=== PATIENT | male | born 1940 | race Caucasian/White ===

== ENCOUNTER 2020-03-14 09:40 | Outpatient (REF) | payer MEDICARE, SELFPAY ==
--- NOTE | 2020-03-14 10:00 | XR_ITS ---
EXAMINATION: XR LUMBOSACRAL SPINE CLINICAL INFORMATION: Dorsalgia COMPARISON: None TECHNIQUE: Three views of the lumbosacral spine. FINDINGS: Multilevel spondylosis with endplate osteophytes and mild disc space granuloma levels most prominent at L3-L4. There is also severe bilateral facet arthrosis from L3-L4 through L5-S1. There is questionable mild loss of vertebral body height of the L1-L2 vertebral bodies. Suspect normal variation rather than fracture. The partially visualized pelvis including sacroiliac joints are normal. Prominent calcific atherosclerotic changes. XR/XR lumbar spine 2-3V IMPRESSION: Prominent multilevel spondylosis of lumbar sacral spine. Question loss of vertebral body heights of the lumbar region likely normal variation or chronic rather than compression fracture.
[2020-03-14 11:30] LABS: Prostate Specific Antigen Scr 0.92 ng/mL (<0.05-4.0)
== END 2020-03-14 09:41 | disposition home or self-care (01) ==
LOC: HO.LAB 09:40
PROVIDERS: PCP Internal Medicine; Visit Provider Internal Medicine
DX: M54.9 Dorsalgia, unspecified (principal)
CPT/HCPCS: 72100; 84153

== ENCOUNTER 2020-07-20 07:16 | Outpatient (REF) | payer MEDICARE, SELFPAY ==
[2020-07-20 07:55] LABS: Mean Corpuscular Hemoglobin 29.4 pg (27.0-33.0); Mean Corpuscular Volume 89.2 fL (80-98); Red Cell Distribution Width 14.9 % (11.0-16.0)
[2020-07-20 07:57] LABS: Basophils Percent Auto 0.5 % (0-2); Eosinophils Absolute Auto 0.1 X10*3/uL (0.0-0.4); Eosinophils Percent Auto 1.5 % (0-4); Hematocrit 46.4 % (42-52); Hemoglobin 15.3 g/dl (14.0-18.0); Imm Gran Abs Auto 0.09 X10*3/uL (0.00-0.03); Imm Gran Pct Auto 1.2 % (0.0-0.4); Lymphocytes Absolute Auto 3.1 X10*3/uL (1.2-4.9); Lymphocytes Percent Auto 42.3 % (20-40); Mean Platelet Volume 11.6 fL (9.4-12.4); Monocytes Absolute Auto 0.9 X10*3/uL (0.1-1.2); Monocytes Percent Auto 11.5 % (2-11); Neutrophils Absolute Auto 3.2 X10*3/uL (2.0-8.3); Platelet Count 126 X10*3/uL (160-400); White Blood Count 7.4 X10*3/uL (4.8-10.8)
[2020-07-20 08:00] LABS: MANUAL DIFF FLAG NO
[2020-07-20 08:15] LABS: Alanine Aminotransferase 23 U/L (0-40); Albumin Level 4.5 g/dL (3.5-5.0); Alkaline Phosphatase 58 U/L (39-117); Anion Gap 10 (12-20); Aspartate Amino Transferase 21 U/L (5-37); Bilirubin Total 1.1 mg/dL (0.0-1.0); Blood Urea Nitrogen 17 mg/dL (9-16); Calcium 9.4 mg/dL (8.4-10.2); Carbon Dioxide 33 mmol/L (22-29); Chloride 104 mmol/L (96-108); Cholesterol 145 mg/dL; Estimated Glomerular Filt Rate > 60; Glucose Random 104 mg/dL (60-115); HDL Cholesterol 49 mg/dL; LDL Cholesterol Calculated 74 mg/dl; Potassium 3.9 mmol/L (3.3-5.1); Sodium 143 mmol/L (135-145); Triglycerides 112 mg/dL
[2020-07-20 08:25] LABS: Glucose Urine UA NEG (NEG); Leukocyte Esterase Urine NEG (NEG); Nitrite Urine NEG (NEG); PH 6.5 (5.0-8.0); Urine Blood NEG (NEG); Urine Ketones NEG (NEG); Urine Protein NEG (NEG-TRACE)
[2020-07-20 08:28] LABS: Appearance Urine CLEAR; Color Urine YELLOW
[2020-07-20 08:38] LABS: Free T4 (Free Thyroxine) 0.93 ng/dL (0.71-1.85); Thyroid Stimulating Hormone 1.76 uIU/mL (0.32-4.0)
[2020-07-20 08:42] LABS: RBC Urine 0 /HPF (0); WBC Urine 0 /HPF (0-4)
[2020-07-22 04:15] LABS: Folate > 20.0 ng/mL (> or = 4.0); Vitamin B12 1024 pg/mL (200-900)
== END 2020-07-20 07:17 | disposition home or self-care (01) ==
LOC: HO.LAB 07:16
PROVIDERS: PCP Internal Medicine; Visit Provider Internal Medicine
DX: E78.00 Pure hypercholesterolemia, unspecified (principal); I10 Essential (primary) hypertension
CPT/HCPCS: 36415; 80053; 80061; 81001; 82607; 82746; 84439; 84443; 85025

== ENCOUNTER 2020-08-05 06:03 | Outpatient (REF) | payer MEDICARE, SELFPAY ==
[2020-08-05 07:21] LABS: MANUAL DIFF FLAG NO
[2020-08-05 07:30] LABS: Basophils Absolute Auto 0.1 X10*3/uL (0.0-0.2); Basophils Percent Auto 0.7 % (0-2); Eosinophils Absolute Auto 0.1 X10*3/uL (0.0-0.4); Eosinophils Percent Auto 1.2 % (0-4); Hematocrit 44.7 % (42-52); Hemoglobin 14.7 g/dl (14.0-18.0); Imm Gran Abs Auto 0.11 X10*3/uL (0.00-0.03); Imm Gran Pct Auto 1.5 % (0.0-0.4); Lymphocytes Absolute Auto 3.5 X10*3/uL (1.2-4.9); Lymphocytes Percent Auto 45.8 % (20-40); Mean Corpuscular HGB Conc 32.9 g/dl (31.0-36.0); Mean Corpuscular Hemoglobin 29.3 pg (27.0-33.0); Monocytes Absolute Auto 0.9 X10*3/uL (0.1-1.2); Monocytes Percent Auto 12.4 % (2-11); Neutrophils Absolute Auto 2.9 X10*3/uL (2.0-8.3); Neutrophils Percent Auto 38.4 % (45-73); Platelet Count 128 X10*3/uL (160-400); Red Blood Count 5.02 X10*6/uL (4.60-5.80); Red Cell Distribution Width 15.1 % (11.0-16.0); White Blood Count 7.5 X10*3/uL (4.8-10.8)
== END 2020-08-05 06:04 | disposition home or self-care (01) ==
LOC: HO.LAB 06:03
PROVIDERS: PCP Internal Medicine; Visit Provider Internal Medicine
DX: D69.6 Thrombocytopenia, unspecified (principal)
CPT/HCPCS: 36415; 85025

== ENCOUNTER 2020-10-11 09:49 | Outpatient (REF) | payer MEDICARE, SELFPAY ==
--- NOTE | ~2020-10-11 | XR_ITS ---
EXAMINATION: XR RIBS, RIGHT CLINICAL INFORMATION: Pleurodynia COMPARISON: None TECHNIQUE: 3 views of the right ribs were obtained. Chest one view. FINDINGS: The lungs are somewhat expanded with increase reticular interstitial markings both lungs likely chronic changes. No consolidation or pleural effusion seen. Heart size is borderline enlarged. Pulmonary vascularity is normal. No gross bony abnormality seen. Multiple views of right ribs reveals a healing or healed fracture right lateral 10th rib. No additional fracture or bony abnormality seen. The soft tissues are normal. XR/XR ribs RT min 3V w CXR1V IMPRESSION: Chronic bilateral reticular interstitial changes. No acute consolidation or pleural effusion. Old healed right lateral 10th rib fracture. No acute fracture seen.
== END 2020-10-11 09:50 | disposition home or self-care (01) ==
LOC: HO.HMGCX 09:49
PROVIDERS: PCP Internal Medicine; Visit Provider Hospitalist
DX: R07.81 Pleurodynia (principal)
CPT/HCPCS: 71101

== ENCOUNTER 2020-10-16 14:27 | Outpatient (REF) | payer MEDICARE, SELFPAY ==
--- NOTE | ~2020-10-16 | XR_ITS ---
EXAMINATION: XR CHEST CLINICAL INFORMATION: Dyspnea COMPARISON: Previous right rib x-rays 10/11/2020 TECHNIQUE: 2 views of the chest were obtained. FINDINGS: The cardiac silhouette is slightly enlarged. The right pulmonary hilum is dominant. The lung volumes are low. There are increased reticular markings suggestive of interstitial lung disease. This is greatest at the lung bases. There is no pleural effusion or pneumothorax. There are degenerative changes of the spine. XR/XR chest 2V IMPRESSION: Low lung volumes and increased interstitial markings suggestive of interstitial lung disease. Slightly enlarged cardiac silhouette. Prominent right pulmonary hilum.
[2020-10-16 15:51] LABS: Glucose Urine UA NEG (NEG); Leukocyte Esterase Urine NEG (NEG); Nitrite Urine NEG (NEG); Specific Gravity - Urine 1.025 (1.005-1.025); Urine Blood NEG (NEG); Urine Ketones 5 MG/DL (NEG); Urine Protein 1+ MG/DL (NEG-TRACE)
[2020-10-16 15:51] LABS: Hematocrit 38.8 % (42-52); Hemoglobin 12.7 g/dl (14.0-18.0); Mean Corpuscular HGB Conc 32.7 g/dl (31.0-36.0); Mean Corpuscular Hemoglobin 28.6 pg (27.0-33.0); Mean Corpuscular Volume 87.4 fL (80-98); Mean Platelet Volume 12.8 fL (9.4-12.4); Platelet Count 237 X10*3/uL (160-400); Red Blood Count 4.44 X10*6/uL (4.60-5.80); Red Cell Distribution Width 15.4 % (11.0-16.0); White Blood Count 10.7 X10*3/uL (4.8-10.8)
[2020-10-16 15:56] LABS: Appearance Urine CLEAR; Color Urine YELLOW
[2020-10-16 16:12] LABS: B Type Natriuretic Peptide 3029 pg/mL (<100)
[2020-10-16 16:14] LABS: Alanine Aminotransferase 44 U/L (0-40); Albumin Level 4.1 g/dL (3.5-5.0); Alkaline Phosphatase 89 U/L (39-117); Anion Gap 15 (12-20); Aspartate Amino Transferase 41 U/L (5-37); Bilirubin Direct 0.6 mg/dL (0.0-0.5); Bilirubin Total 1.5 mg/dL (0.0-1.0); Blood Urea Nitrogen 31 mg/dL (9-16); Calcium 9.5 mg/dL (8.4-10.2); Carbon Dioxide 27 mmol/L (22-29); Chloride 101 mmol/L (96-108); Estimated Glomerular Filt Rate > 60; Glucose Random 112 mg/dL (60-115); Potassium 3.7 mmol/L (3.3-5.1); Sodium 139 mmol/L (135-145); Total Protein 6.6 g/dL (6.5-8.0)
[2020-10-16 16:58] LABS: Mucus Urine 2+ /LPF; RBC Urine 0 /HPF (0); Squamous Epithelial Cell Urine TRACE /LPF; WBC Urine 0-2 /HPF (0-4)
== END 2020-10-16 14:28 | disposition home or self-care (01) ==
LOC: HO.XRAY 14:27
PROVIDERS: PCP Internal Medicine; Visit Provider Physician Assistant
DX: R53.83 Other fatigue (principal); R06.00 Dyspnea, unspecified; R30.0 Dysuria; I10 Essential (primary) hypertension
CPT/HCPCS: 36415; 71046; 80048; 80076; 81001; 83880; 85027

== ENCOUNTER → 2020-10-22 13:30 | Outpatient (BNVA) | payer MEDICARE, SELFPAY | PROVIDERS: PCP Internal Medicine; Visit Provider Internal Medicine ==

== ENCOUNTER 2020-10-26 08:22 | Inpatient (IN) | payer MEDICARE, SELFPAY ==
[2020-10-26] VITALS (9 sets, daily range): BP systolic 93–119; BP diastolic 56–76; PULSE 67–78; RESP 18–25; TEMP 36.4–36.8; O2SAT 90–97; BMI 25.4; BMI 25.5
--- NOTE | ~2020-10-26 | XR_ITS ---
EXAMINATION: XR CHEST CLINICAL INFORMATION: SOB COMPARISON: None TECHNIQUE: 2 views of the chest were obtained. FINDINGS: The lungs are well-expanded with patchy and interstitial opacity seen in both lungs suggestive of infiltrates the findings have minimally progressed since the last exam 10/16/2020. Heart size and pulmonary vascularity is normal. No gross bony abnormality seen. XR/XR chest 2V IMPRESSION: Bilateral patchy and interstitial opacities in both lungs slightly more prominent than the previous exams 10/16/2020.
--- NOTE | ~2020-10-26 | XR_ITS ---
EXAMINATION: XR CHEST CLINICAL INFORMATION: Following evaluation. History shortness of breath. COMPARISON: Chest radiograph on 10/26/[address] chest without contrast on 10/26/2020. TECHNIQUE: Frontal view of the chest was obtained. FINDINGS: Lung volumes are low. The heart is enlarged but stable in size. There are bilateral pulmonary opacities which appear slightly increased when compared to the prior examination, though this may be related to technique and low lung volumes. Small bilateral effusions. No pneumothorax. XR/XR chest 1V IMPRESSION: Low lung volumes. Persistent bilateral pulmonary opacities are stable to slightly increased when compared to the 10/26/2020 comparison. Small bilateral effusions.
--- NOTE | ~2020-10-26 | CT_ITS ---
EXAMINATION: CT CHEST WITHOUT CONTRAST CLINICAL INFORMATION: Abnormal chest x-ray. Evaluate for pneumonia COMPARISON: Chest x-ray 10/26/2020 TECHNIQUE: Multidetector volumetric CT imaging of the chest was done. Axial MIP volume rendering provided. Sagittal and coronal reformatted images were obtained. This CT examination was performed using dose optimization techniques as appropriate, variously including the following: *Automated exposure control *Adjustment of mA and/or kV according to patient size (this includes techniques or standardized protocols for targeted exams where dose is matched to indication/reason for exam; i.e. extremities or head) *Use of iterative reconstruction technique DLP: 304 mGy-cm FINDINGS: The exam is limited due to breathing artifact throughout the exam WINDOW CASER: Well-inflated lungs with patchy opacities bilaterally. LUNGS: There is diffuse groundglass opacities seen in both upper lobes, consolidation dependent segments of both upper lobe, superior segment and posterior segments of both lower lobe and minimal groundglass changes in the right middle lobe consistent with multilobar infiltrates. There is no bronchiectasis, tree-in-bud appearance seen. MEDIASTINUM: Central trachea and the bronchi widely patent. Thyroid lobes are symmetrical. Small abnormal reactive lymph nodes are seen in superior mediastinum measuring 1.6 x 1.2 cm, pretracheal space measuring 1.6 x 0.9 cm and aortic window measuring 1.1 cm. There are coronary artery calcifications present. The heart size is normal. Interval pericardial effusion seen on the right the great vessels are normal caliber. PLEURA: I lateral pleural effusions. No pleural calcification or pneumothorax seen. AXILLA: No lymphadenopathy. UPPER ABDOMEN: Visualized liver, spleen, pancreas and bilateral adrenal glands are unremarkable. OSSEOUS STRUCTURES: Mild spondylosis dorsal spine. CT/CT chest wo con IMPRESSION: There are multilevel or infiltrates and groundglass opacities suspicious for COVID like inflammatory process. There is bilateral small pleural effusions minimally greater on the left. Coronary artery calcifications are present.
--- NOTE | 2020-10-26 08:36 | ECG_ITS ---
Test Reason : SOB Blood Pressure : / mmHG Vent. Rate : 077 BPM Atrial Rate : 077 BPM P-R Int : 148 ms QRS Dur : 138 ms QT Int : 428 ms P-R-T Axes : 037 061 238 degrees QTc Int : 484 ms Normal sinus rhythm Possible Left atrial enlargement Non-specific intra-ventricular conduction block T wave abnormality, consider inferior ischemia and lateral ischemia Abnormal ECG When compared with ECG of 13-JUL-2015 07:43, IVCD present Inferolateral ischemic changes Referred By: Reyna Dove Electronically Signed By:Clive Reeves
--- NOTE | 2020-10-26 08:45 | ED.SOB ---
HPI - SOB/Dyspnea General Chief Complaint: Dyspnea Stated Complaint: sob Time Seen by Provider: 10/26/20 08:34 Source: patient Mode of arrival: ambulatory Limitations: no limitations History of Present Illness HPI Narrative: 80 yo male with past medical history of recent diagnosis of congestive heart failure on 20 mg of Lasix daily, hypertension, high cholesterol, BPH, coronary artery disease here with complaints of shortness of breath for the last 2 months worsening over the last 24 hours. Patient tells me he was seen at his primary care doctor the last month and referred to Cardiology for an elevated BNP. He was seen by Dr. Moran on October 22 and at that time had a BNP of greater than 3000. He was presumed to have congestive heart failure was started on 20 mg of Lasix. He has an outpatient echocardiogram and noncontrast CT scan of the chest next Wednesday. He is here because over the last 24 hours he feels like his breathing is getting worse. He can only walk 1-2 steps without feeling out of breath. He has orthopnea. He denies leg swelling or pain. No chest pain. No fevers or chills. He does have an occasional dry cough. No weight gain. He is complaining of fatigue and poor appetite due to difficulty breathing. Received 1st vaccine (Moderna) August 2020, 2nd vaccine (Moderna) August 2020 at [facility]. Related Data Home Medications Medication Instructions Recorded Confirmed atenolol 50 mg-chlorthalidone 25 1 tab PO DAILY 03/14/20 10/26/20 mg tablet atorvastatin 40 mg tablet 40 mg PO DAILY 03/14/20 10/26/20 aspirin 81 mg tablet,delayed 81 mg PO DAILY 05/10/20 10/26/20 release Previous Rx's Medication Instructions Recorded terazosin 2 mg capsule 2 mg PO BEDTIME #30 cap 09/19/20 furosemide 20 mg tablet 20 mg PO QAM 14 Days #14 tab 10/17/20 lisinopril 5 mg tablet 5 mg PO DAILY 30 Days #30 tab 10/17/20 albuterol sulfate 90 mcg/actuation 1 inh INHALATION QID PRN 30 Days 10/22/20 aerosol inhaler #8.5 g melatonin 10 mg capsule 10 mg PO DAILY 30 Days #30 cap 10/22/20 Allergies Allergy/AdvReac Type Severity Reaction Status Date / Time No Known Allergies Allergy Verified 10/22/20 13:43 Review of Systems Review of Systems: Yes all other systems are reviewed and are negative Constitutional: Constitutional: Reports no additional constitutional complaints, Denies body ache(s), Denies chills, Reports fatigue, Denies fever(s), Denies headache(s), Reports poor appetite and Denies weakness Eyes: Eyes: Reports no additional eye complaints and Denies change in vision ENT: Reports system reviewed and no additional complaints, except as documented, Denies dizziness, Denies headache(s), Denies nasal congestion, Denies nasal discharge and Denies neck pain Cardiovascular: Cardiovascular: Reports no additional cardiovascular complaints, Denies chest pain, Denies leg edema and Reports dyspnea Respiratory: Respiratory: Reports no additional respiratory complaints, Denies cough and Reports dyspnea Gastrointestinal: Gastrointestinal: Reports no additional gastrointestinal complaints, Denies abdominal pain, Denies diarrhea, Denies nausea and Denies vomiting Genitourinary: Genitourinary: Denies urinary incontinence Musculoskeletal: Musculoskeletal: Reports no additional musculoskeletal complaints, Denies back pain, Denies arthralgias, Denies joint swelling, Denies neck pain, Denies numbness and Denies tingling Integumentary/Breasts: Skin/Breast: Reports system reviewed and no additional complaints, except as docu and Denies rash Neurologic: Reports system reviewed and no additional complaints, except as documented, Denies Abnormal speech present, Denies dizziness, Denies headache(s), Denies numbness, Denies tingling and Denies weakness Endocrine: Endocrine: Reports fatigue PMFSH Past Medical History Attestation statement: The following information was validated with the patient. Source: old records reviewed and nursing notes reviewed Medical History Anxiety and depression BPH (benign prostatic hyperplasia) Coronary artery disease Hypercholesterolemia Hypertension Macular degeneration Urinary incontinence Varicose veins of both lower extremities Surgical History History of cataract surgery Hx of tonsillectomy Family History Family History Father No problems noted. Mother No problems noted. Social History Social History Housing: House Alcohol intake: never Patient Tobacco Use Status: Former Tobacco user e-Cigarette/Vaping Use: Never Used Second Hand Smoke Exposure: Yes Use of substances other than those prescribed or required for medical reasons: No Advance Directives: Yes Advance Directives Information Provided: No Advance Directives on File: No service: Yes ([employer]) Current occupational status: retired Physical Exam Vital Signs: Vital Signs: Last Vital Signs Temp 98.1 F 10/26/20 10:41 Pulse 76 10/26/20 11:28 Resp 18 10/26/20 11:28 BP 109/76 10/26/20 11:28 Pulse Ox 97 10/26/20 11:28 Body Mass Index 25.4 Const: General: cooperative, healthy appearing, comfortable and no acute distress Orientation/consciousness: patient oriented x3 Limitations: no limitations HENMT: Head: Yes normal to inspection Ears: hearing grossly normal bilaterally General nose exam: Normal external nose present Face and sinus: Yes normal facial exam Mouth: Normal oral and palatal mucosa present Throat: Yes posterior oropharynx normal Eyes: General: appearance normal, both eyes and all related structures Pupils: Equal, round and reactive pupils present Neck: Neck: Yes normal visual inspection Chest: Chest palpation & inspection: normal inspection of the chest Resp: Other: Speaking in short phrases Fine crackles throughout Cardio: Rate: regular rate Rhythm: regular rhythm Peripheral pulses: Peripheral pulses 2+ throughout GI: Inspection: Yes normal to inspection Palpation (GI): Soft to palpation and nontender Auscultation: normal bowel sounds Back/Spine/Pelvis: Thoracic/Lumbar Spine: thoracic and lumbar spine normal to inspection Skin: General skin exam: no rashes or lesions noted Neuro: General: patient oriented x3, no focal motor deficits and normal sensation to monofilament Cranial nerves: Yes Equal, round and reactive pupils present Cognition (Neuro): normal cognition Speech: No Abnormal speech present Gait exam (Neuro): Normal gait present Motor exam (neuro): 5/5 motor strength present throughout Extrem: General: Yes normal to inspection, Yes no pedal edema and Yes no calf tenderness Course Course Course Narrative: 80-year-old male here with progressive dyspnea x 24 hrs with orthopnea, fatigue and poor appetite in the setting of recent diagnosis of CHF on 20mg lasix x 4 days after being seen by Dr Moran ([facility]) 10/22. On arrival A&Ox4. HD stable. No reports of CP. No obvious JVD or leg swelling. Mild tachypnea noted with talking, fine crackles. Will check CXR, EKG, labs, COVID screen. Give 40mg lasix and admit. 854-EKG shows V1-V3 ST changes, poor R wave progression and ST depressions in leads V4-V6. Lateral ST changes when compared to EKG 10/22. NO chest pain. Call out to Dr Reeves to discuss. 904-D/w with Dr Reeves. NOT STEMI but lateral changes. Pending labs, CXR and w/u. 324mg ASA given. Nursing to place additional PIV. VS stable. 927-CXR shows IMPRESSION: Bilateral patchy and interstitial opacities in both lungs slightly more prominent than the previous exams 10/16/2020. Will check Ct Chest. -Troponin 46.6. Plan for repeat 3 hr troponin. BNP 3735. 1015-Ct c/w There are multilevel or infiltrates and groundglass opacities suspicious for COVID like inflammatory process. There is bilateral small pleural effusions minimally greater on the left. Coronary artery calcifications are present. At this time infection is suspected. Blood cultures, lactic acid ordered. Antibiotics ordered. 1020-Call out to medicine to discuss for admission. 1100-Spoke to Dr Salinas who accepted admission. MDM - SOB/Dyspnea MDM Narrative Medical decision making narrative: acs, nstemi, chf exacerbation, myocarditis Differential Diagnosis Differential diagnosis: Likely acute exacerbation of chronic obstructive airways disease, congestive heart failure and pneumonia Medical Records Attestation: I reviewed the patient's medical records. Lab Data Attestation: I reviewed the patient's lab results. Result diagrams: 10/26/20 08:56 10/26/20 08:56 Labs: Lab Results 10/26/20 10/26/20 10/26/20 Range/Units 08:56 08:56 08:56 WBC 8.7 (4.8-10.8) X10*3/uL RBC 4.46 L (4.60-5.80) X10*6/uL Hgb 12.6 L (14.0-18.0) g/dl Hct 38.6 L (42-52) % MCV 86.5 (80-98) fL MCH 28.3 (27.0-33.0) pg MCHC 32.6 (31.0-36.0) g/dl RDW 15.5 (11.0-16.0) % Plt Count 199 (160-400) X10*3/uL MPV 11.9 (9.4-12.4) fL Immature Gran % (Auto) 1.8 H (0.0-0.4) % Neut % (Auto) 74.5 H (45-73) % Lymph % (Auto) 13.5 L (20-40) % [place] % (Auto) 9.6 (2-11) % Eos % (Auto) 0.3 (0-4) % Baso % (Auto) 0.3 (0-2) % Lymph # (Auto) 1.2 (1.2-4.9) X10*3/uL [place] # (Auto) 0.8 (0.1-1.2) X10*3/uL Eos # (Auto) 0.0 (0.0-0.4) X10*3/uL Baso # (Auto) 0.0 (0.0-0.2) X10*3/uL Abs Immat Gran (auto) 0.16 H (0.00-0.03) X10*3/uL Absolute Neuts (auto) 6.5 (2.0-8.3) X10*3/uL Absolute Nucleated RBC 0.000 (0.0-0.012) X10*3/uL Nucleated RBC % (auto) 0.0 (0.0-0.2) /100WBC ESR (0-15) MM/HR PT 16.0 H (10.8-13.0) SEC INR 1.3 H (0.9-1.1) Sodium 135 (135-145) mmol/L Potassium 3.6 (3.3-5.1) mmol/L Chloride 100 (96-108) mmol/L Carbon Dioxide 28 (22-29) mmol/L Anion Gap 11 L (12-20) BUN 23 H (9-16) mg/dL Creatinine 0.92 (0.5-1.4) mg/dL Estim Creat Clear Calc 63.9 Estimated GFR > 60 Random Glucose 180 H D (60-115) mg/dL Lactic Acid (0.5-2.0) mmol/L Calcium 9.2 (8.4-10.2) mg/dL Magnesium (1.6-2.6) mg/dL Total Bilirubin (0.0-1.0) mg/dL Direct Bilirubin (0.0-0.5) mg/dL AST (5-37) U/L ALT (0-40) U/L Alkaline Phosphatase (39-117) U/L Troponin I High Sens (<3.5-35.0) ng/L C-Reactive Protein (< or = 0.50) mg/dL B-Natriuretic Peptide (<100) pg/mL Total Protein (6.5-8.0) g/dL Albumin (3.5-5.0) g/dL Coronavirus (PCR) (Negative) COVID-19 (MIS) (Negative) COVID-19 Clin Com Influenza Type A (PCR) (Negative) Influenza Type B (PCR) (Negative) RSV RNA Qual (PCR) (Negative) 10/26/20 10/26/20 10/26/20 Range/Units 08:56 08:56 08:56 WBC (4.8-10.8) X10*3/uL RBC (4.60-5.80) X10*6/uL Hgb (14.0-18.0) g/dl Hct (42-52) % MCV (80-98) fL MCH (27.0-33.0) pg MCHC (31.0-36.0) g/dl RDW (11.0-16.0) % Plt Count (160-400) X10*3/uL MPV (9.4-12.4) fL Immature Gran % (Auto) (0.0-0.4) % Neut % (Auto) (45-73) % Lymph % (Auto) (20-40) % [place] % (Auto) (2-11) % Eos % (Auto) (0-4) % Baso % (Auto) (0-2) % Lymph # (Auto) (1.2-4.9) X10*3/uL [place] # (Auto) (0.1-1.2) X10*3/uL Eos # (Auto) (0.0-0.4) X10*3/uL Baso # (Auto) (0.0-0.2) X10*3/uL Abs Immat Gran (auto) (0.00-0.03) X10*3/uL Absolute Neuts (auto) (2.0-8.3) X10*3/uL Absolute Nucleated RBC (0.0-0.012) X10*3/uL Nucleated RBC % (auto) (0.0-0.2) /100WBC ESR 31 H (0-15) MM/HR PT (10.8-13.0) SEC INR (0.9-1.1) Sodium (135-145) mmol/L Potassium (3.3-5.1) mmol/L Chloride (96-108) mmol/L Carbon Dioxide (22-29) mmol/L Anion Gap (12-20) BUN (9-16) mg/dL Creatinine (0.5-1.4) mg/dL Estim Creat Clear Calc Estimated GFR Random Glucose (60-115) mg/dL Lactic Acid (0.5-2.0) mmol/L Calcium (8.4-10.2) mg/dL Magnesium 2.2 (1.6-2.6) mg/dL Total Bilirubin 1.4 H (0.0-1.0) mg/dL Direct Bilirubin 0.7 H (0.0-0.5) mg/dL AST 32 (5-37) U/L ALT 43 H (0-40) U/L Alkaline Phosphatase 117 D (39-117) U/L Troponin I High Sens 46.6 H* (<3.5-35.0) ng/L C-Reactive Protein 2.85 H (< or = 0.50) mg/dL B-Natriuretic Peptide 3735 H (<100) pg/mL Total Protein 6.3 L (6.5-8.0) g/dL Albumin 3.9 (3.5-5.0) g/dL Coronavirus (PCR) (Negative) COVID-19 (MIS) (Negative) COVID-19 Clin Com Influenza Type A (PCR) (Negative) Influenza Type B (PCR) (Negative) RSV RNA Qual (PCR) (Negative) 10/26/20 10/26/20 10/26/20 Range/Units 09:31 10:36 10:36 WBC (4.8-10.8) X10*3/uL RBC (4.60-5.80) X10*6/uL Hgb (14.0-18.0) g/dl Hct (42-52) % MCV (80-98) fL MCH (27.0-33.0) pg MCHC (31.0-36.0) g/dl RDW (11.0-16.0) % Plt Count (160-400) X10*3/uL MPV (9.4-12.4) fL Immature Gran % (Auto) (0.0-0.4) % Neut % (Auto) (45-73) % Lymph % (Auto) (20-40) % [place] % (Auto) (2-11) % Eos % (Auto) (0-4) % Baso % (Auto) (0-2) % Lymph # (Auto) (1.2-4.9) X10*3/uL [place] # (Auto) (0.1-1.2) X10*3/uL Eos # (Auto) (0.0-0.4) X10*3/uL Baso # (Auto) (0.0-0.2) X10*3/uL Abs Immat Gran (auto) (0.00-0.03) X10*3/uL Absolute Neuts (auto) (2.0-8.3) X10*3/uL Absolute Nucleated RBC (0.0-0.012) X10*3/uL Nucleated RBC % (auto) (0.0-0.2) /100WBC ESR (0-15) MM/HR PT (10.8-13.0) SEC INR (0.9-1.1) Sodium (135-145) mmol/L Potassium (3.3-5.1) mmol/L Chloride (96-108) mmol/L Carbon Dioxide (22-29) mmol/L Anion Gap (12-20) BUN (9-16) mg/dL Creatinine (0.5-1.4) mg/dL Estim Creat Clear Calc Estimated GFR Random Glucose (60-115) mg/dL Lactic Acid 1.6 (0.5-2.0) mmol/L Calcium (8.4-10.2) mg/dL Magnesium (1.6-2.6) mg/dL Total Bilirubin (0.0-1.0) mg/dL Direct Bilirubin (0.0-0.5) mg/dL AST (5-37) U/L ALT (0-40) U/L Alkaline Phosphatase (39-117) U/L Troponin I High Sens 41.5 H* (<3.5-35.0) ng/L C-Reactive Protein (< or = 0.50) mg/dL B-Natriuretic Peptide (<100) pg/mL Total Protein (6.5-8.0) g/dL Albumin (3.5-5.0) g/dL Coronavirus (PCR) (Negative) COVID-19 (MIS) Negative (Negative) COVID-19 Clin Com See Note Influenza Type A (PCR) (Negative) Influenza Type B (PCR) (Negative) RSV RNA Qual (PCR) (Negative) 10/26/20 Range/Units 10:39 WBC (4.8-10.8) X10*3/uL RBC (4.60-5.80) X10*6/uL Hgb (14.0-18.0) g/dl Hct (42-52) % MCV (80-98) fL MCH (27.0-33.0) pg MCHC (31.0-36.0) g/dl RDW (11.0-16.0) % Plt Count (160-400) X10*3/uL MPV (9.4-12.4) fL Immature Gran % (Auto) (0.0-0.4) % Neut % (Auto) (45-73) % Lymph % (Auto) (20-40) % [place] % (Auto) (2-11) % Eos % (Auto) (0-4) % Baso % (Auto) (0-2) % Lymph # (Auto) (1.2-4.9) X10*3/uL [place] # (Auto) (0.1-1.2) X10*3/uL Eos # (Auto) (0.0-0.4) X10*3/uL Baso # (Auto) (0.0-0.2) X10*3/uL Abs Immat Gran (auto) (0.00-0.03) X10*3/uL Absolute Neuts (auto) (2.0-8.3) X10*3/uL Absolute Nucleated RBC (0.0-0.012) X10*3/uL Nucleated RBC % (auto) (0.0-0.2) /100WBC ESR (0-15) MM/HR PT (10.8-13.0) SEC INR (0.9-1.1) Sodium (135-145) mmol/L Potassium (3.3-5.1) mmol/L Chloride (96-108) mmol/L Carbon Dioxide (22-29) mmol/L Anion Gap (12-20) BUN (9-16) mg/dL Creatinine (0.5-1.4) mg/dL Estim Creat Clear Calc Estimated GFR Random Glucose (60-115) mg/dL Lactic Acid (0.5-2.0) mmol/L Calcium (8.4-10.2) mg/dL Magnesium (1.6-2.6) mg/dL Total Bilirubin (0.0-1.0) mg/dL Direct Bilirubin (0.0-0.5) mg/dL AST (5-37) U/L ALT (0-40) U/L Alkaline Phosphatase (39-117) U/L Troponin I High Sens (<3.5-35.0) ng/L C-Reactive Protein (< or = 0.50) mg/dL B-Natriuretic Peptide (<100) pg/mL Total Protein (6.5-8.0) g/dL Albumin (3.5-5.0) g/dL Coronavirus (PCR) NEGATIVE (Negative) COVID-19 (MIS) (Negative) COVID-19 Clin Com Influenza Type A (PCR) NEGATIVE (Negative) Influenza Type B (PCR) NEGATIVE (Negative) RSV RNA Qual (PCR) NEGATIVE (Negative) Imaging Data Chest x-ray: Attestation: I personally reviewed and interpreted this imaging study as follows: Radiologist's impression: FINDINGS: The lungs are well-expanded with patchy and interstitial opacity seen in both lungs suggestive of infiltrates the findings have minimally progressed since the last exam 10/16/2020. Heart size and pulmonary vascularity is normal. No gross bony abnormality seen. XR/XR chest 2V IMPRESSION: Bilateral patchy and interstitial opacities in both lungs slightly more prominent than the previous exams 10/16/2020. CT scan - chest: Attestation: I personally reviewed and interpreted this imaging study as follows: Radiologist's impression: IMPRESSION: There are multilevel or infiltrates and groundglass opacities suspicious for COVID like inflammatory process. There is bilateral small pleural effusions minimally greater on the left. Coronary artery calcifications are present. ECG Data Attestation: I personally reviewed and interpreted this ECG as follows: Interpretation: NSR with rate 77, St changes V1-V3 with poor r wave progression, ST depressions V4-V6. Reviewed with Dr Maria [id number] Reeves [id number] Discharge Plan Discharge Clinical Impression: CHF (congestive heart failure), SOB (shortness of breath), Acute electrocardiogram changes, Elevated troponin, Elevated brain natriuretic peptide (BNP) level Patient Disposition: Admitted As Inpatient
[2020-10-26 09:01] LABS: MANUAL DIFF FLAG NO
[2020-10-26] MEDS: Furosemide 40 MG/4 ML VIAL IVPUSH (09:02)
[2020-10-26 09:06] LABS: Basophils Percent Auto 0.3 % (0-2); Eosinophils Percent Auto 0.3 % (0-4); Hematocrit 38.6 % (42-52); Hemoglobin 12.6 g/dl (14.0-18.0); Imm Gran Abs Auto 0.16 X10*3/uL (0.00-0.03); Imm Gran Pct Auto 1.8 % (0.0-0.4); Lymphocytes Absolute Auto 1.2 X10*3/uL (1.2-4.9); Lymphocytes Percent Auto 13.5 % (20-40); Mean Corpuscular HGB Conc 32.6 g/dl (31.0-36.0); Mean Corpuscular Hemoglobin 28.3 pg (27.0-33.0); Mean Corpuscular Volume 86.5 fL (80-98); Mean Platelet Volume 11.9 fL (9.4-12.4); Monocytes Absolute Auto 0.8 X10*3/uL (0.1-1.2); Monocytes Percent Auto 9.6 % (2-11); Neutrophils Absolute Auto 6.5 X10*3/uL (2.0-8.3); Neutrophils Percent Auto 74.5 % (45-73); Platelet Count 199 X10*3/uL (160-400); Red Blood Count 4.46 X10*6/uL (4.60-5.80); Red Cell Distribution Width 15.5 % (11.0-16.0); White Blood Count 8.7 X10*3/uL (4.8-10.8)
[2020-10-26 09:09] LABS: INTERNATIONAL NORM RATIO 1.3 (0.9-1.1)
[2020-10-26] MEDS: Aspirin 81 MG TAB.CHEW 324 MG PO (09:15)
--- NOTE | 2020-10-26 09:19 | PC.NURSE ---
second iv placed following ekg, pt denies any cp at this time. given aspirin, tolerating po.
[2020-10-26 09:27] LABS: Alanine Aminotransferase 43 U/L (0-40); Albumin Level 3.9 g/dL (3.5-5.0); Alkaline Phosphatase 117 U/L (39-117); Anion Gap 11 (12-20); Aspartate Amino Transferase 32 U/L (5-37); Bilirubin Direct 0.7 mg/dL (0.0-0.5); Bilirubin Total 1.4 mg/dL (0.0-1.0); Blood Urea Nitrogen 23 mg/dL (9-16); Calcium 9.2 mg/dL (8.4-10.2); Carbon Dioxide 28 mmol/L (22-29); Chloride 100 mmol/L (96-108); Creatinine Clr Calc Pharmacy 63.9; Estimated Glomerular Filt Rate > 60; Glucose Random 180 mg/dL (60-115); Magnesium 2.2 mg/dL (1.6-2.6); Potassium 3.6 mmol/L (3.3-5.1); Sodium 135 mmol/L (135-145); Total Protein 6.3 g/dL (6.5-8.0)
[2020-10-26 09:38] LABS: B Type Natriuretic Peptide 3735 pg/mL (<100)
[2020-10-26 09:41] LABS: Troponin-I High Sensitivity 46.6 ng/L (<3.5-35.0)
[2020-10-26 09:52] LABS: COVID-19 Test Negative (Negative)
--- NOTE | 2020-10-26 10:16 | P.CONCA_ITS ---
History of Present Illness History of Present Illness Date of Service: 10/26/20 Requesting physician: Robina Maria Chief complaint: CHF Narrative: 80-year-old gentleman was seen by Dr. Moran recently with shortness of breath. He was referred for echocardiography and CT chest because there was some question what interstitial lung disease. He is now presenting for worsening shortness of breath which change in his breathing over the last few days. He is saying he has been short of breath for some time but recently his breathing has changed significantly. He is complaining of orthopnea and is unable to lay flat in bed. CT chest is showing inflammatory changes consistent with COVID infection. His COVID PCR is negative. He is denying chest disco mfort. He was given IV diuretics. Labs and EKG reviewed. [facility] Past Medical History Medical History Anxiety and depression BPH (benign prostatic hyperplasia) Coronary artery disease Hypercholesterolemia Hypertension Macular degeneration Urinary incontinence Varicose veins of both lower extremities Family History Family History Father No problems noted. Mother No problems noted. Surgical History Surgical History History of cataract surgery Hx of tonsillectomy Social History Social History Housing: House Alcohol intake: never Patient Tobacco Use Status: Former Tobacco user e-Cigarette/Vaping Use: Never Used Second Hand Smoke Exposure: Yes Use of substances other than those prescribed or required for medical reasons: No Advance Directives: Yes Advance Directives Information Provided: No Advance Directives on File: No service: Yes ([employer]) Current occupational status: retired Meds Allergies Allergy/AdvReac Type Severity Reaction Status Date / Time No Known Allergies Allergy Verified 10/22/20 13:43 Active Medications: Current Medications Generic Name Dose Route Start Last Admin Trade Name Freq PRN Reason Stop Dose Admin Ceftriaxone Sodium 1 gm/ 50 mls @ 100 mls/hr 10/26/20 10:15 Sodium Chloride IV 10/26/20 10:44 ONCE ONE Azithromycin 500 mg/ Sodium 250 mls @ 125 mls/hr 10/26/20 10:15 Chloride IV 10/26/20 12:14 ONCE ONE Home Medications Medication Instructions Recorded Confirmed Last Taken Type atenolol 50 mg-chlorthalidone 25 1 tab PO DAILY 03/14/20 10/26/20 Unknown History mg tablet atorvastatin 40 mg tablet 40 mg PO DAILY 03/14/20 10/26/20 Unknown History aspirin 81 mg tablet,delayed 81 mg PO DAILY 05/10/20 10/26/20 Unknown History release Physical Exam Vital Signs: Vital Signs: Last Vital Signs Temp 97.9 F 10/26/20 08:24 Pulse 78 10/26/20 08:24 Resp 18 10/26/20 08:24 BP 119/72 10/26/20 08:24 Pulse Ox 96 10/26/20 08:24 Body Mass Index 25.4 GENERAL APPEARANCE: in no acute distress, pleasant. NECK: no carotid bruit, no jugular venous distention. SKIN: no suspicious lesions, warm and dry. HEART: no murmurs, regular rate and rhythm. LUNGS: Few crackles. ABDOMEN: soft, nontender. EXTREMITIES: no edema. PERIPHERAL PULSES: equal. NEUROLOGIC: No gross deficits, AAO X 3 Results Labs and Meds Result diagrams: 10/26/20 08:56 10/26/20 08:56 Lab results: Laboratory Results - last 24 hr 10/26/20 10/26/20 10/26/20 08:56 08:56 08:56 WBC 8.7 RBC 4.46 L Hgb 12.6 L Hct 38.6 L MCV 86.5 MCH 28.3 MCHC 32.6 RDW 15.5 Plt Count 199 MPV 11.9 Immature Gran % (Auto) 1.8 H Neut % (Auto) 74.5 H Lymph % (Auto) 13.5 L [place] % (Auto) 9.6 Eos % (Auto) 0.3 Baso % (Auto) 0.3 Lymph # (Auto) 1.2 [place] # (Auto) 0.8 Eos # (Auto) 0.0 Baso # (Auto) 0.0 Abs Immat Gran (auto) 0.16 H Absolute Neuts (auto) 6.5 Absolute Nucleated RBC 0.000 Nucleated RBC % (auto) 0.0 PT 16.0 H INR 1.3 H Sodium 135 Potassium 3.6 Chloride 100 Carbon Dioxide 28 Anion Gap 11 L BUN 23 H Creatinine 0.92 Estim Creat Clear Calc 63.9 Estimated GFR > 60 Random Glucose 180 H D Calcium 9.2 Magnesium Total Bilirubin Direct Bilirubin AST ALT Alkaline Phosphatase Troponin I High Sens B-Natriuretic Peptide Total Protein Albumin COVID-19 (MIS) COVID-19 Clin Com 10/26/20 10/26/20 10/26/20 08:56 08:56 09:31 WBC RBC Hgb Hct MCV MCH MCHC RDW Plt Count MPV Immature Gran % (Auto) Neut % (Auto) Lymph % (Auto) [place] % (Auto) Eos % (Auto) Baso % (Auto) Lymph # (Auto) [place] # (Auto) Eos # (Auto) Baso # (Auto) Abs Immat Gran (auto) Absolute Neuts (auto) Absolute Nucleated RBC Nucleated RBC % (auto) PT INR Sodium Potassium Chloride Carbon Dioxide Anion Gap BUN Creatinine Estim Creat Clear Calc Estimated GFR Random Glucose Calcium Magnesium 2.2 Total Bilirubin 1.4 H Direct Bilirubin 0.7 H AST 32 ALT 43 H Alkaline Phosphatase 117 D Troponin I High Sens 46.6 H* B-Natriuretic Peptide 3735 H Total Protein 6.3 L Albumin 3.9 COVID-19 (MIS) Negative COVID-19 Clin Com See Note Imaging Radiologist's impression: Impressions Chest X-Ray 10/26/20 08:36 IMPRESSION: Bilateral patchy and interstitial opacities in both lungs slightly more prominent than the previous exams 10/16/2020. Chest CT 10/26/20 09:28 IMPRESSION: There are multilevel or infiltrates and groundglass opacities suspicious for COVID like inflammatory process. There is bilateral small pleural effusions minimally greater on the left. Coronary artery calcifications are present. Assessment and Plan (1) Dyspnea on exertion: Status: Acute (2) CHF (congestive heart failure): Status: Acute 80-year-old gentleman with shortness of breath and orthopnea. He was seen recently in the office for shortness of breath and was referred for echocardiography and CT chest because there was some changes consistent with interstitial lung disease. He had CT scan in the ER which is showing changes consistent with COVID infection. He also has some features which go along with heart failure. His BNP is significantly elevated and he has some orthopnea. agree with diuretics for now. We will check echocardiogram to assess for any structural issues. he had coronary artery calcifications on the CT scan. He will needs ischemic evaluation eventually. I think currently we need to understand whether this is purely heart failure or this is post COVID. Post diuretics he can have a chest x-ray tomorrow to see if there is any changes because of this is mostly fluid the chest x-ray showed improved. We will follow along with you. Thank you for allowing me to participate in the care of your patient. Please feel free to contact me if you have any questions. Procedures Date of Service Date of Service: 10/26/20
[2020-10-26 10:33] LABS: C Reactive Protein 2.85 mg/dL (< or = 0.50)
[2020-10-26] MEDS: cefTRIAXone sodium 1 GM in 0.9 % Sodium Chloride 50 ML IV (10:47)
--- NOTE | 2020-10-26 11:19 | CA_ITS ---
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 - The visually estimated ejection fraction is between 15-20%. - The basal inferior segment is akinetic. - Mildly increased right ventricular cavity size. There is mildly decreased right ventricular systolic function. - The left atrium is severely dilated. - Moderate pulmonary hypertension is present. - There is moderate tricuspid valve regurgitation. - There is mild to moderate mitral valve regurgitation. Findings Left Ventricle Mildly increased left ventricular cavity size. There is mildly increased left ventricular wall thickness. The left ventricular systolic function is severely decreased. The visually estimated ejection fraction is between 15 20%. There is severe global hypokinesis. Abnormal diastolic function is noted. Elevated filling pressures. Wall Motion Rest Echo Findings The basal inferior segment is akinetic. Right Ventricle Mildly increased right ventricular cavity size. There is mildly decreased right ventricular systolic function. Atria The left atrium is severely dilated. Aortic Valve Normal aortic valve structure and function. There is no aortic valve stenosis. There is no aortic valve regurgitation. Mitral Valve The mitral valve appears normal. There is mild to moderate mitral valve regurgitation. There is no mitral valve stenosis. Pulmonic Valve Normal pulmonic valve structure and function. There is trace pulmonic valve regurgitation. Tricuspid Valve Normal tricuspid valve structure. There is moderate tricuspid valve regurgitation. Moderately elevated right atrial pressure. Moderate pulmonary hypertension is present. Great Vessels The visualized portions of the pulmonary artery and branches are normal. Venous The inferior vena cava is dilated and collapses less than 50% with inspiration. Pericardium/Pleural There is no evidence of pericardial effusion. Prior Study Comparison No prior study available for comparison. Measurements 2D Linear Measurements IVSd: 1.22 0.6-0.9/0.6-1.0 cm LVIDd: 6.14 3.9-5.3/4.2-5.9 cm LVIDd Index: 3.10 2.4-3.2/2.2-3.1 cm/m2 LVIDs: 5.49 2.0-3.6 cm LVPWd: 1.24 0.7-1.1 cm Ao Root: 3.60 2.1-3.5 cm LA Diam: 5.10 2.7-3.8/3.0-4.0 cm LAIDs Index: 2.58 1.5-2.3 cm/m2 LV Mass: 420.76 67-162/88-224 g LV Mass Index: 212.51 43-95/49-115 g/m2 LVOT Diam: 2.30 3.0+(-)1.3 cm Mitral Valve MV Pk E: 0.68 MV PK A: 0.71 MV Decel Time: 118.00 E/A: 1.00 E'Lateral: 4.24 E'Medial: 3.05 E/E' Med: 22.30 E/E' Lat: 16.10 PHT: 34.00 MVA PHT: 6.47 Decel [place]: 5.79 Aortic Valve AoV Pk Jin: 0.92 AoV Mn Jin: 0.60 AoV VTI: 0.21 AoV Pk Grad: 3.00 Aov Mn Grad: 2.00 ELIEL Cont.VTI: 2.49 LVOT LVOT Pk Jin: 0.60 LVOT Mn Jin: 0.39 LVOT VTI: 0.13 LVOT Pk Grad: 1.00 LVOT Mn Grad: 1.00 LVOT Diam: 2.30 LVOT Area: 4.15 Diastolic Function MV Pk E: 0.68 MV Pk A: 0.71 E/A: 1.00 E'Medial: 3.05 E/E' Med: 22.30 E' Laterial: 4.24 E/E' Lat: 16.10 Tricuspid Valve TR Pk Jin: 3.08 TR Pk Grad: 38.00 RA Press: 15.00 RVSP: 53.00 Great Vessels Aorta Ao Root-2D: 3.60 2.0-3.7 cm Pulmonary Valve PV Pk Jin: 0.96 Peak PV Grad: 4.00 Updated in Other Vendor System with Status of Final Clive Reeves MD electronically signed on 10/26/2020 4:16:30 PM with status of Final
[2020-10-26] MEDS: Azithromycin 500 MG in 0.9 % Sodium Chloride 250 ML 125 MG IV (11:24)
[2020-10-26 11:27] LABS: Erythrocyte Sedimentation Rate 31 MM/HR (0-15)
[2020-10-26 11:28] LABS: Lactic Acid 1.6 mmol/L (0.5-2.0)
[2020-10-26 11:32] LABS: Influenza A PCR NEGATIVE (Negative); Influenza B PCR NEGATIVE (Negative); Resp Syncy Virus RNA Qual PCR NEGATIVE (Negative); SARS COV2 PCR INHOUSE NEGATIVE (Negative)
[2020-10-26 11:40] LABS: Troponin-I High Sensitivity 41.5 ng/L (<3.5-35.0)
--- NOTE | 2020-10-26 11:41 | PM.IMHP ---
History of Present Illness Date of Service: 10/26/20 Chief Complaint: Shortness of breath 80-year-old male presented with shortness of breath. Patient states that he has been feeling short of breath since about 3 months prior to presentation. This is worse on exertion, patient states that he ahs to stop to get his breath with just minimal exertion. Complains of orthopnea. He was seen in cardiology clinic 4 days prior to presentation, at that time noted to have elevated BNP, chest x-ray with interstitial opacities, plan was for CT chest and echo. Patient returned to ED today for worsening shortness of breath over last day and feeling like he can not wait for outpatient workup. In ED CT chest showed bilateral ground-glass opacities. COVID negative. Review of Systems Review of Systems: Constitutional: Denies fever, denies Chills Eyes: denies blurry vision ENT: denies sore throat CVS: denies chest pain Respiratory: dyspnea GI: no abdominal pain : denies dysuria MSK: denies neck pain Skin: denies rash Neuro: denies specific motor weakness Psych: denies suicidal ideation Endocrine: denies heat/cold intoleratnce Hematologic: denies easy bleeding Allergy: denies hives [facility] Medical History Anxiety and depression BPH (benign prostatic hyperplasia) Coronary artery disease Hypercholesterolemia Hypertension Macular degeneration Urinary incontinence Varicose veins of both lower extremities Family History Father No problems noted. Mother No problems noted. Family history: reviewed and not pertinent Surgical History History of cataract surgery Hx of tonsillectomy Social History Housing: House Alcohol intake: never Patient Tobacco Use Status: Former Tobacco user e-Cigarette/Vaping Use: Never Used Second Hand Smoke Exposure: Yes Use of substances other than those prescribed or required for medical reasons: No Advance Directives: Yes Advance Directives Information Provided: No Advance Directives on File: No service: Yes ([employer]) Current occupational status: retired Meds Allergies Allergy/AdvReac Type Severity Reaction Status Date / Time No Known Allergies Allergy Verified 10/22/20 13:43 Active Medications: Current Medications Generic Name Dose Route Start Last Admin Trade Name Alan PRN Reason Stop Dose Admin Azithromycin 500 mg/ Sodium 250 mls @ 125 mls/hr 10/26/20 10:15 10/26/20 11:24 Chloride IV 10/26/20 12:14 125 mls/hr ONCE ONE Administration Home Medications Medication Instructions Recorded Confirmed Last Taken Type atenolol 50 mg-chlorthalidone 25 1 tab PO DAILY 03/14/20 10/26/20 Unknown History mg tablet atorvastatin 40 mg tablet 40 mg PO DAILY 03/14/20 10/26/20 Unknown History aspirin 81 mg tablet,delayed 81 mg PO DAILY 05/10/20 10/26/20 Unknown History release Physical Exam Vital Signs and Narrative: Vital Signs: Last Vital Signs Temp 98.1 F 10/26/20 10:41 Pulse 76 10/26/20 11:28 Resp 18 10/26/20 11:28 BP 109/76 10/26/20 11:28 Pulse Ox 97 10/26/20 11:28 Body Mass Index 25.4 General: no acute distress HEENT: atraumatic Neck: normal to visual inspection CVS: S1, S2, RRR Resp: Crackles, jvd+ Chest: non tender GI: soft, non tender, non distended : no CVA tenderness Skin: no rashes Extremities: no edema Neuro: Oriented X3, grossly intact Psych: cooperative Results Labs CBC and Chem 7: 10/26/20 08:56 10/26/20 08:56 Labs: Laboratory Results - last 24 hr 10/26/20 10/26/20 10/26/20 08:56 08:56 08:56 MCV 86.5 MCH 28.3 MCHC 32.6 RDW 15.5 Plt Count 199 MPV 11.9 Immature Gran % (Auto) 1.8 H Neut % (Auto) 74.5 H Lymph % (Auto) 13.5 L [place] % (Auto) 9.6 Eos % (Auto) 0.3 Baso % (Auto) 0.3 Lymph # (Auto) 1.2 [place] # (Auto) 0.8 Eos # (Auto) 0.0 Baso # (Auto) 0.0 Abs Immat Gran (auto) 0.16 H Absolute Neuts (auto) 6.5 Absolute Nucleated RBC 0.000 Nucleated RBC % (auto) 0.0 ESR PT 16.0 H INR 1.3 H Anion Gap 11 L Estim Creat Clear Calc 63.9 Estimated GFR > 60 Random Glucose 180 H D Lactic Acid Calcium 9.2 Magnesium Total Bilirubin Direct Bilirubin AST ALT Alkaline Phosphatase Troponin I High Sens C-Reactive Protein B-Natriuretic Peptide Total Protein Albumin COVID-19 (MIS) COVID-19 Clin Com 10/26/20 10/26/20 10/26/20 08:56 08:56 08:56 MCV MCH MCHC RDW Plt Count MPV Immature Gran % (Auto) Neut % (Auto) Lymph % (Auto) [place] % (Auto) Eos % (Auto) Baso % (Auto) Lymph # (Auto) [place] # (Auto) Eos # (Auto) Baso # (Auto) Abs Immat Gran (auto) Absolute Neuts (auto) Absolute Nucleated RBC Nucleated RBC % (auto) ESR 31 H PT INR Anion Gap Estim Creat Clear Calc Estimated GFR Random Glucose Lactic Acid Calcium Magnesium 2.2 Total Bilirubin 1.4 H Direct Bilirubin 0.7 H AST 32 ALT 43 H Alkaline Phosphatase 117 D Troponin I High Sens 46.6 H* C-Reactive Protein 2.85 H B-Natriuretic Peptide 3735 H Total Protein 6.3 L Albumin 3.9 COVID-19 (MIS) COVID-19 [employer] Com 10/26/20 10/26/20 10/26/20 09:31 10:36 10:36 MCV MCH MCHC RDW Plt Count MPV Immature Gran % (Auto) Neut % (Auto) Lymph % (Auto) [place] % (Auto) Eos % (Auto) Baso % (Auto) Lymph # (Auto) [place] # (Auto) Eos # (Auto) Baso # (Auto) Abs Immat Gran (auto) Absolute Neuts (auto) Absolute Nucleated RBC Nucleated RBC % (auto) ESR PT INR Anion Gap Estim Creat Clear Calc Estimated GFR Random Glucose Lactic Acid 1.6 Calcium Magnesium Total Bilirubin Direct Bilirubin AST ALT Alkaline Phosphatase Troponin I High Sens 41.5 H* C-Reactive Protein B-Natriuretic Peptide Total Protein Albumin COVID-19 (MIS) Negative COVID-19 Clin Com See Note Imaging Radiologist's Impressions: Impressions Chest X-Ray 10/26/20 08:36 IMPRESSION: Bilateral patchy and interstitial opacities in both lungs slightly more prominent than the previous exams 10/16/2020. Chest CT 10/26/20 09:28 IMPRESSION: There are multilevel or infiltrates and groundglass opacities suspicious for COVID like inflammatory process. There is bilateral small pleural effusions minimally greater on the left. Coronary artery calcifications are present. Assessment and Plan (1) SOB (shortness of breath): Status: Acute 80M presented with sob acute on chronic CHF unspecified IV lasix times one in ED, follow up echo, cardio interstitial findings on CT ?ILD will give steroids covid negative pulm eval HTN low -normal bp, will hold atenolol/chlorthalidone, terazosin for now CAD asa, statin Quality Stroke Does the patient have a stroke diagnosis?: No VTE Prior VTE?: No VTE Risk Level:: Medical - moderate - high VTE Device Contraindication: Treatment Not Indicated VTE Drug Contraindication: N/A - Med Ordered
[2020-10-26] MEDS: Losartan Potassium 25 MG TABLET PO (13:09)
[2020-10-26] MEDS: 0.9 % Sodium Chloride Flush 3 ML SYRINGE IVFLUSH ×2 (15:13→20:40)
[2020-10-26] MEDS: Melatonin 3 MG TABLET 9 MG PO (20:40)
[2020-10-27 02:02] VITALS: BP 97/52; PULSE 70; RESP 18; TEMP 36.2; O2SAT 91
[2020-10-27] MEDS: Enoxaparin Sodium 40 MG/0.4 ML SYRINGE SUBCUT (05:08)
[2020-10-27 05:34] VITALS: BMI 25.2
[2020-10-27 06:43] LABS: Hemoglobin 12.3 g/dl (14.0-18.0); Mean Corpuscular HGB Conc 33.2 g/dl (31.0-36.0); Mean Corpuscular Hemoglobin 28.5 pg (27.0-33.0); Mean Corpuscular Volume 85.8 fL (80-98); Mean Platelet Volume 12.9 fL (9.4-12.4); Platelet Count 177 X10*3/uL (160-400); Red Blood Count 4.31 X10*6/uL (4.60-5.80); Red Cell Distribution Width 15.5 % (11.0-16.0); White Blood Count 7.3 X10*3/uL (4.8-10.8)
[2020-10-27 07:00] LABS: B Type Natriuretic Peptide 2492 pg/mL (<100)
[2020-10-27 07:03] LABS: Anion Gap 12 (12-20); Blood Urea Nitrogen 22 mg/dL (9-16); Calcium 8.5 mg/dL (8.4-10.2); Carbon Dioxide 28 mmol/L (22-29); Chloride 102 mmol/L (96-108); Creatinine Clr Calc Pharmacy 73.5; Estimated Glomerular Filt Rate > 60; Glucose Fasting 92 mg/dL (60-99); Magnesium 2.1 mg/dL (1.6-2.6); Potassium 3.2 mmol/L (3.3-5.1); Sodium 139 mmol/L (135-145)
[2020-10-27 07:59] VITALS: BP 110/66; PULSE 74; RESP 19; TEMP 36.3; O2SAT 93
[2020-10-27] MEDS: 0.9 % Sodium Chloride Flush 3 ML SYRINGE IVFLUSH ×3 (08:06→21:43)
[2020-10-27] MEDS: Atorvastatin Calcium 40 MG TABLET PO (08:07)
[2020-10-27] MEDS: predniSONE 20 MG TABLET 40 MG PO (08:07)
[2020-10-27] MEDS: Furosemide 20 MG/2 ML VIAL IVPUSH (08:07)
[2020-10-27] MEDS: Losartan Potassium 25 MG TABLET PO (08:07)
[2020-10-27] MEDS: Aspirin Enteric Coated 81 MG TABLET.DR PO (08:07)
--- NOTE | 2020-10-27 10:03 | HO.PM.IMPN ---
Subjective Subjective Date of Service: 10/27/20 Interval History: sob improving, was able to lie flat Cardiovascular Cardiovascular: Reports no additional cardiovascular complaints Respiratory Respiratory: Reports no additional respiratory complaints Physical Exam Vital Signs: Vital Signs: Last Vital Signs Temp 97.4 F 10/27/20 07:59 Pulse 74 10/27/20 07:59 Resp 19 10/27/20 07:59 BP 110/66 10/27/20 07:59 Pulse Ox 93 10/27/20 07:59 Body Mass Index 25.2 General: AO X 3, no acute distress Resp: CTA bilateral CVS: S1,S2,RRR GI: soft, non tender, non distended Neuro: motor grossly intact Psych: appropriate affect Objective Data Current Medications Generic Name Dose Route Start Last Admin Trade Name Freq PRN Reason Stop Dose Admin Albuterol Sulfate 1 puff 10/26/20 14:44 Albuterol Sulfate 90 Mcg 8 Gm Inhaler INHALE QID PRN shortness of breath or wheezing Aspirin 81 mg 10/27/20 09:00 10/27/20 08:07 Aspirin Enteric Coated 81 Mg Tablet. PO 81 mg DAILY YOU Administration Atorvastatin Calcium 40 mg 10/27/20 09:00 10/27/20 08:07 Atorvastatin Calcium 40 Mg Tablet PO 40 mg DAILY YOU Administration Enoxaparin Sodium 40 mg 10/27/20 06:00 10/27/20 05:08 Enoxaparin Sodium 40 Mg/0.4 Ml Syringe SUBCUT 40 mg Q24H YOU Administration Furosemide 20 mg 10/27/20 09:00 10/27/20 08:07 Furosemide 20 Mg/2 Ml Vial IVPUSH 20 mg DAILY YOU Administration Protocol Losartan Potassium 25 mg 10/26/20 13:00 10/27/20 08:07 Losartan Potassium 25 Mg Tablet PO 25 mg DAILY YOU Administration Protocol Melatonin 9 mg 10/26/20 21:00 10/26/20 20:40 Melatonin 3 Mg Tablet PO 9 mg BEDTIME YOU Administration Prednisone 40 mg 10/27/20 09:00 10/27/20 08:07 Prednisone 20 Mg Tablet PO 40 mg DAILY YOU Administration Sodium Chloride 3 ml 10/26/20 16:00 10/27/20 08:06 0.9 % Sodium Chloride Flush 3 Ml Syringe IVFLUSH 3 ml QSHIFT YOU Administration Labs CBC & Chem 7: 10/27/20 05:43 10/27/20 05:43 Labs: Laboratory Results - last 24 hr 10/26/20 10/26/20 10/26/20 08:56 08:56 10:36 WBC RBC Hgb Hct MCV MCH MCHC RDW Plt Count MPV Absolute Nucleated RBC Nucleated RBC % (auto) ESR 31 H Sodium Potassium Chloride Carbon Dioxide Anion Gap BUN Creatinine Estim Creat Clear Calc Estimated GFR Fasting Glucose Lactic Acid Calcium Magnesium Troponin I High Sens 41.5 H* C-Reactive Protein 2.85 H B-Natriuretic Peptide Coronavirus (PCR) Influenza Type A (PCR) Influenza Type B (PCR) RSV RNA Qual (PCR) 10/26/20 10/26/20 10/27/20 10:36 10:39 05:43 WBC 7.3 RBC 4.31 L Hgb 12.3 L Hct 37.0 L MCV 85.8 MCH 28.5 MCHC 33.2 RDW 15.5 Plt Count 177 MPV 12.9 H Absolute Nucleated RBC 0.000 Nucleated RBC % (auto) 0.0 ESR Sodium Potassium Chloride Carbon Dioxide Anion Gap BUN Creatinine Estim Creat Clear Calc Estimated GFR Fasting Glucose Lactic Acid 1.6 Calcium Magnesium Troponin I High Sens C-Reactive Protein B-Natriuretic Peptide Coronavirus (PCR) NEGATIVE Influenza Type A (PCR) NEGATIVE Influenza Type B (PCR) NEGATIVE RSV RNA Qual (PCR) NEGATIVE 10/27/20 10/27/20 05:43 05:43 WBC RBC Hgb Hct MCV MCH MCHC RDW Plt Count MPV Absolute Nucleated RBC Nucleated RBC % (auto) ESR Sodium 139 Potassium 3.2 L Chloride 102 Carbon Dioxide 28 Anion Gap 12 BUN 22 H Creatinine 0.80 Estim Creat Clear Calc 73.5 Estimated GFR > 60 Fasting Glucose 92 Lactic Acid Calcium 8.5 D Magnesium 2.1 Troponin I High Sens C-Reactive Protein B-Natriuretic Peptide 2492 H Coronavirus (PCR) Influenza Type A (PCR) Influenza Type B (PCR) RSV RNA Qual (PCR) Quality Stroke Does the patient have a stroke diagnosis?: No VTE Prior VTE?: No VTE Risk Level:: Medical - moderate - high VTE Device Contraindication: Treatment Not Indicated VTE Drug Contraindication: N/A - Med Ordered Assessment and Plan (1) Acute congestive heart failure: Status: Acute Assessment and Plan: 80M presented with sob acute on chronic CHF with reduced EF received 40mg iv lasix in ED, now on 20mg daily notes improvement echo with EF of 20% follow up cardio follow up repeat CXR losartan interstitial findings on CT ?asymetric pulm edema vs ILD pulm eval HTN low -normal bp, will hold atenolol/chlorthalidone, terazosin, lisinopril for now CAD asa, statin
--- NOTE | 2020-10-27 10:31 | PM.CNPUL ---
History of Present Illness History of Present Illness Consult date: 10/27/20 Requesting physician: Johnathon Salinas Reason for consult: dyspnea and hypoxemia Chief complaint: CHF Narrative: 80-year-old gentleman, former 20 pack-year smoker quit 1989, with underlying history of coronary artery disease, hypertension, BPH, macular degeneration admitted on 10/26/2020 with progressive dyspnea of the last [address] chest demonstrated interstitial edema and upper lobe predominant infiltrates. He has been started on diuresis. His 2D echo official report is pending with preliminary showing ejection fraction of 20%. Patient today reports significant improvement in his orthopnea and dyspnea with diuresis. He denies cough or sputum production. 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 Review of Systems Constitutional: Constitutional: Denies daytime sleepiness, Denies excessive sweating, Denies fatigue, Denies fever(s), Denies lethargy, Denies malaise, Denies night sweats, Denies snoring and Denies weight loss Eyes: Eyes: Denies blurry vision and Denies itchy eyes ENT: Denies nasal congestion, Denies post nasal drip, Denies sinus pain, Denies sinus pressure and Denies other ( Thrush) Cardiovascular: Cardiovascular: Denies chest pain, Denies pedal edema, Reports dyspnea, Reports orthopnea and Reports paroxysmal nocturnal dyspnea Respiratory: Respiratory: Denies cough, Denies hemoptysis, Denies excessive phlegm production, Reports dyspnea, Denies snoring and Denies wheezing Gastrointestinal: Gastrointestinal: Denies abdominal pain and Denies heartburn Musculoskeletal: Musculoskeletal: Denies myalgias, Denies arthralgias and Denies joint swelling Integumentary/Breasts: Skin/Breast: Denies rash Neurologic: Denies memory loss and Denies seizure-like activity Psychiatric: Psychiatric: Denies abnormal sleep pattern, Denies anxiety and Denies memory loss Endocrine: Endocrine: Denies excessive sweating, Denies fatigue and Denies heat intolerance Hematologic/Lymphatic: Hematologic/Lymphatic: Denies easy bruising Allergic/Immunologic: Allergic/Immunologic: Denies itchy eyes, Denies seasonal rhinorrhea and Denies wheezing PMFSH Past Medical History Medical History Anxiety and depression BPH (benign prostatic hyperplasia) Coronary artery disease Hypercholesterolemia Hypertension Macular degeneration Urinary incontinence Varicose veins of both lower extremities Family History Family History Father No problems noted. Mother No problems noted. Family history: reviewed and not pertinent Surgical History Surgical History History of cataract surgery Hx of tonsillectomy Social History Social History Household Members: Friend(s) and None Housing: House Do you presently have visiting nurse or other home services: No Alcohol intake: never Patient Tobacco Use Status: Former Tobacco user Tobacco use type: Cigarette e-Cigarette/Vaping Use: Never Used Second Hand Smoke Exposure: Yes Advance Directives Date on File: 10/26/20 service: Yes ([employer]) Current occupational status: retired [employer] Allergies Allergy/AdvReac Type Severity Reaction Status Date / Time No Known Allergies Allergy Verified 10/22/20 13:43 Active Medications: Current Medications Generic Name Dose Route Start Last Admin Trade Name Freq PRN Reason Stop Dose Admin Albuterol Sulfate 1 puff 10/26/20 14:44 Albuterol Sulfate 90 Mcg 8 Gm Inhaler INHALE QID PRN shortness of breath or wheezing Aspirin 81 mg 10/27/20 09:00 10/27/20 08:07 Aspirin Enteric Coated 81 Mg Tablet. PO 81 mg DAILY YOU Administration Atorvastatin Calcium 40 mg 10/27/20 09:00 10/27/20 08:07 Atorvastatin Calcium 40 Mg Tablet PO 40 mg DAILY YOU Administration Enoxaparin Sodium 40 mg 10/27/20 06:00 10/27/20 05:08 Enoxaparin Sodium 40 Mg/0.4 Ml Syringe SUBCUT 40 mg Q24H YOU Administration Furosemide 20 mg 10/27/20 09:00 10/27/20 08:07 Furosemide 20 Mg/2 Ml Vial IVPUSH 20 mg DAILY YOU Administration Protocol Losartan Potassium 25 mg 10/26/20 13:00 10/27/20 08:07 Losartan Potassium 25 Mg Tablet PO 25 mg DAILY YOU Administration Protocol Melatonin 9 mg 10/26/20 21:00 10/26/20 20:40 Melatonin 3 Mg Tablet PO 9 mg BEDTIME YOU Administration Prednisone 40 mg 10/27/20 09:00 10/27/20 08:07 Prednisone 20 Mg Tablet PO 40 mg DAILY YOU Administration Sodium Chloride 3 ml 10/26/20 16:00 10/27/20 08:06 0.9 % Sodium Chloride Flush 3 Ml Syringe IVFLUSH 3 ml QSHIFT YOU Administration Home Medications Medication Instructions Recorded Confirmed Last Taken Type atenolol 50 mg-chlorthalidone 25 1 tab PO DAILY 03/14/20 10/26/20 Unknown History mg tablet atorvastatin 40 mg tablet 40 mg PO DAILY 03/14/20 10/26/20 Unknown History aspirin 81 mg tablet,delayed 81 mg PO DAILY 05/10/20 10/26/20 Unknown History release Physical Exam Vital Signs: Vital Signs: Last Vital Signs Temp 97.4 F 10/27/20 07:59 Pulse 74 10/27/20 07:59 Resp 19 10/27/20 07:59 BP 110/66 10/27/20 07:59 Pulse Ox 93 10/27/20 07:59 Body Mass Index 25.2 Const: General: no acute distress, alert and awake Eyes: Sclerae: sclerae normal EOM: EOMs intact bilaterally Neck: Neck: Yes no lymphadenopathy, Yes trachea midline and Yes supple Resp: Effort & Inspection: normal respiratory effort and no respiratory distress Auscultation: clear to auscultation bilaterally Cardio: Rate: regular rate Rhythm: regular rhythm Heart sounds: no gallops, no murmurs and no rubs GI: Palpation (GI): Soft to palpation and Other GI palpation findings present ( Nontender) Auscultation: normal bowel sounds Extrem: General: Yes no pedal edema, No clubbing and No cyanosis Results Laboratory Findings CBC and BMP: 10/27/20 05:43 10/27/20 05:43 ABG, PT/INR, D-dimer: PT/INR, D-dimer PT 16.0 SEC (10.8-13.0) H 10/26/20 08:56 INR 1.3 (0.9-1.1) H 10/26/20 08:56 Abnormal lab findings: Abnormal Labs 10/26/20 10/26/20 10/26/20 08:56 08:56 08:56 RBC 4.46 L Hgb 12.6 L Hct 38.6 L MPV Immature Gran % (Auto) 1.8 H Neut % (Auto) 74.5 H Lymph % (Auto) 13.5 L Abs Immat Gran (auto) 0.16 H ESR PT 16.0 H INR 1.3 H Potassium Anion Gap 11 L BUN 23 H Random Glucose 180 H D Total Bilirubin Direct Bilirubin ALT Troponin I High Sens C-Reactive Protein B-Natriuretic Peptide Total Protein 10/26/20 10/26/20 10/26/20 08:56 08:56 08:56 RBC Hgb Hct MPV Immature Gran % (Auto) Neut % (Auto) Lymph % (Auto) Abs Immat Gran (auto) ESR 31 H PT INR Potassium Anion Gap BUN Random Glucose Total Bilirubin 1.4 H Direct Bilirubin 0.7 H ALT 43 H Troponin I High Sens 46.6 H* C-Reactive Protein 2.85 H B-Natriuretic Peptide 3735 H Total Protein 6.3 L 10/26/20 10/27/20 10/27/20 10:36 05:43 05:43 RBC 4.31 L Hgb 12.3 L Hct 37.0 L MPV 12.9 H Immature Gran % (Auto) Neut % (Auto) Lymph % (Auto) Abs Immat Gran (auto) ESR PT INR Potassium 3.2 L Anion Gap BUN 22 H Random Glucose Total Bilirubin Direct Bilirubin ALT Troponin I High Sens 41.5 H* C-Reactive Protein B-Natriuretic Peptide Total Protein 10/27/20 05:43 RBC Hgb Hct MPV Immature Gran % (Auto) Neut % (Auto) Lymph % (Auto) Abs Immat Gran (auto) ESR PT INR Potassium Anion Gap BUN Random Glucose Total Bilirubin Direct Bilirubin ALT Troponin I High Sens C-Reactive Protein B-Natriuretic Peptide 2492 H Total Protein Assessment and Plan (1) Acute respiratory failure with hypoxia: Status: Acute Impression: 80-year-old gentleman admitted with progressive dyspnea of the last [address] chest. His dyspnea, orthopnea, and paroxysmal nocturnal dyspnea symptoms have improved significantly with diuresis. His echocardiogram demonstrated reduced ejection fraction. His repeat chest x-ray today after initial diuresis demonstrates significantly cleared lung gutierrez. Patient appears mostly to cardiac etiology to his underlying dyspnea and abnormalities noted on CT chest. Recommendation: Agree with further diuresis. (2) Abnormal CT scan, chest: Status: Acute Procedures Date of Service Date of Service: 10/27/20
--- NOTE | 2020-10-27 10:54 | MHC.CM.PN ---
CM MET WITH PT WHO REPORTS HE LIVES ALONE IN A BASEMENT APARTMENT AND WAS INDEPENDENT WITH NO DME OR SERVICES CNS. PT REPORTS HIS DAUGHTER, LURDES IS HIS HCP. COPY REQUESTED. PT EXPRESSED CONCERN THAT HE WOULD NOT BE ABLE TO CONTACT HIS DAUGHTER FROM HIS ROOM PHONE SHE IS IN [place]. CM WILL CALL HER TO INFORM HER OF ADMISSION AND PROVIDE THE PHONE NUMBER TO PTS ROOM. PT REPORTS BEING OPEN TO [facility] UPON DISCHARGE AND REQUESTS A REFERRAL BE MADE TO [facility] REFERRAL PLACED. IMM DELIVERED CURRENT DC PLAN IS HOME WITH NO SERVICES VS HOME WITH [facility] PT WILL DRIVE HIMSELF HOME, CAR IS IN LOT
[2020-10-27 11:18] VITALS: BP 109/69; PULSE 82; RESP 18; TEMP 36.4; O2SAT 96
--- NOTE | 2020-10-27 13:16 | PM.PNCARD ---
Subjective Subjective Date of Service: 10/27/20 Interval history: feeling better with diuretics. Echocardiography showed severe cardiomyopathy. Physical Exam Vital Signs: Last Vital Signs Temp 97.5 F 10/27/20 11:18 Pulse 82 10/27/20 11:18 Resp 18 10/27/20 11:18 BP 109/69 10/27/20 11:18 Pulse Ox 96 10/27/20 11:18 Body Mass Index 25.2 GENERAL APPEARANCE: in no acute distress, pleasant. NECK: no carotid bruit, Positive hepatic jugular reflux. SKIN: no suspicious lesions, warm and dry. HEART: no murmurs, regular rate and rhythm. LUNGS: lungs clear to auscultation. ABDOMEN: soft, nontender. EXTREMITIES: no edema. PERIPHERAL PULSES: equal. NEUROLOGIC: No gross deficits, AAO X 3 Results Labs and Meds Result diagrams: 10/27/20 05:43 10/27/20 05:43 Lab results: Laboratory Results - last 24 hr 10/27/20 10/27/20 10/27/20 05:43 05:43 05:43 WBC 7.3 RBC 4.31 L Hgb 12.3 L Hct 37.0 L MCV 85.8 MCH 28.5 MCHC 33.2 RDW 15.5 Plt Count 177 MPV 12.9 H Absolute Nucleated RBC 0.000 Nucleated RBC % (auto) 0.0 Sodium 139 Potassium 3.2 L Chloride 102 Carbon Dioxide 28 Anion Gap 12 BUN 22 H Creatinine 0.80 Estim Creat Clear Calc 73.5 Estimated GFR > 60 Fasting Glucose 92 Calcium 8.5 D Magnesium 2.1 B-Natriuretic Peptide 2492 H Imaging Radiologist's impression: Impressions Chest X-Ray 10/27/20 10:20 IMPRESSION: Low lung volumes. Persistent bilateral pulmonary opacities are stable to slightly increased when compared to the 10/26/2020 comparison. Small bilateral effusions. Progress Note: A&P Assessment and plan (1) Acute congestive heart failure: Status: Acute Assessment and Plan: 80-year-old gentleman presenting with shortness of breath, orthopnea and new diagnosis of congestive heart failure. Echocardiography has shown evidence of severely reduced ejection fraction. He has been started on losartan 25 mg once a day. Continue to hold the atenolol. He should get IV diuretics for now. We will reassess his volume status tomorrow. if stable then we will consider transferring her to [facility] for diagnostic angiogram for Wednesday. No beta-blockers right now. Thank you for allowing me to participate in the care of your patient. Please feel free to contact me if you have any questions. Fall Risk Details Current Medications: Current Medications Generic Name Dose Route Start Last Admin Trade Name Freq PRN Reason Stop Dose Admin Albuterol Sulfate 1 puff 10/26/20 14:44 Albuterol Sulfate 90 Mcg 8 Gm Inhaler INHALE QID PRN shortness of breath or wheezing Aspirin 81 mg 10/27/20 09:00 10/27/20 08:07 Aspirin Enteric Coated 81 Mg Tablet. PO 81 mg DAILY YOU Administration Atorvastatin Calcium 40 mg 10/27/20 09:00 10/27/20 08:07 Atorvastatin Calcium 40 Mg Tablet PO 40 mg DAILY YOU Administration Enoxaparin Sodium 40 mg 10/27/20 06:00 10/27/20 05:08 Enoxaparin Sodium 40 Mg/0.4 Ml Syringe SUBCUT 40 mg Q24H YOU Administration Furosemide 20 mg 10/27/20 09:00 10/27/20 08:07 Furosemide 20 Mg/2 Ml Vial IVPUSH 20 mg DAILY YOU Administration Protocol Losartan Potassium 25 mg 10/26/20 13:00 10/27/20 08:07 Losartan Potassium 25 Mg Tablet PO 25 mg DAILY YOU Administration Protocol Melatonin 9 mg 10/26/20 21:00 10/26/20 20:40 Melatonin 3 Mg Tablet PO 9 mg BEDTIME YOU Administration Prednisone 40 mg 10/27/20 09:00 10/27/20 08:07 Prednisone 20 Mg Tablet PO 40 mg DAILY YOU Administration Sodium Chloride 3 ml 10/26/20 16:00 10/27/20 08:06 0.9 % Sodium Chloride Flush 3 Ml Syringe IVFLUSH 3 ml QSHIFT YOU Administration Time Spent With Patient Time: Total time spent is greater than 50% in coordination of care (as documented) at patient's floor/unit and/or counseling patient: Time with patient: 15 - 24 minutes Progress Note: Quality Stroke Does the patient have a stroke diagnosis?: No Procedures Date of Service Date of Service: 10/27/20
[2020-10-27 15:03] VITALS: BP 97/55; PULSE 80; RESP 20; TEMP 36.4; O2SAT 93
[2020-10-27 19:24] VITALS: BP 96/60; PULSE 77; RESP 18; TEMP 36.4; O2SAT 92
[2020-10-27] MEDS: Melatonin 3 MG TABLET 9 MG PO (21:43)
[2020-10-27 23:22] VITALS: BP 112/65; PULSE 64; RESP 18; TEMP 37
[2020-10-28 03:25] VITALS: BP 105/66; PULSE 79; RESP 20; TEMP 36.6; O2SAT 92
[2020-10-28 05:53] VITALS: BMI 25.3
[2020-10-28] MEDS: Enoxaparin Sodium 40 MG/0.4 ML SYRINGE SUBCUT (06:24)
[2020-10-28 06:51] LABS: Hematocrit 35.3 % (42-52); Hemoglobin 11.9 g/dl (14.0-18.0); Mean Corpuscular HGB Conc 33.7 g/dl (31.0-36.0); Mean Corpuscular Hemoglobin 29.1 pg (27.0-33.0); Mean Corpuscular Volume 86.3 fL (80-98); Mean Platelet Volume 12.1 fL (9.4-12.4); Platelet Count 183 X10*3/uL (160-400); Red Blood Count 4.09 X10*6/uL (4.60-5.80); Red Cell Distribution Width 15.6 % (11.0-16.0); White Blood Count 9.8 X10*3/uL (4.8-10.8)
[2020-10-28 07:14] LABS: B Type Natriuretic Peptide 2607 pg/mL (<100)
[2020-10-28 07:23] LABS: Anion Gap 9 (12-20); Blood Urea Nitrogen 22 mg/dL (9-16); Calcium 8.6 mg/dL (8.4-10.2); Carbon Dioxide 31 mmol/L (22-29); Chloride 104 mmol/L (96-108); Creatinine Clr Calc Pharmacy 71.7; Estimated Glomerular Filt Rate > 60; Glucose Fasting 96 mg/dL (60-99); Magnesium 2.2 mg/dL (1.6-2.6); Potassium 3.5 mmol/L (3.3-5.1); Sodium 140 mmol/L (135-145)
[2020-10-28 08:00] VITALS: BP 104/59; PULSE 81; RESP 18; TEMP 36.4; O2SAT 97
[2020-10-28 08:36] VITALS: BP 104/59; PULSE 81
[2020-10-28] MEDS: Furosemide 40 MG/4 ML VIAL IVPUSH (08:36)
[2020-10-28] MEDS: predniSONE 20 MG TABLET 40 MG PO (08:36)
[2020-10-28] MEDS: 0.9 % Sodium Chloride Flush 3 ML SYRINGE IVFLUSH (08:36)
[2020-10-28] MEDS: Losartan Potassium 25 MG TABLET PO (08:36)
[2020-10-28] MEDS: Atorvastatin Calcium 40 MG TABLET PO (08:37)
[2020-10-28] MEDS: Aspirin Enteric Coated 81 MG TABLET.DR PO (08:37)
--- NOTE | 2020-10-28 09:55 | P.PNCA_ITS ---
Subjective Subjective Date of Service: 10/28/20 Principal diagnosis: CHF, cardiomyopathy Interval history: patient says he is breathing a lot better. He is able to lay flat now. He is diuresing well, although his intake and output chart does not seem to correspond to that. He has been given all his medications and tolerating them well. No palpitations, lightheadedness, syncope. No overnight arrhythmias. Review of Systems Constitutional: Reports no additional constitutional complaints Cardiovascular: Denies chest pain, Denies leg edema, Denies lightheadedness, Denies palpitations, Reports dyspnea and Denies orthopnea Respiratory: Reports no additional respiratory complaints and Reports dyspnea Gastrointestinal: Reports no additional gastrointestinal complaints Reports system reviewed and no additional complaints, except as documented Psychiatric: Reports no additional psychiatric complaints Endocrine: Reports no additional endocrine complaints and Denies palpitations Physical Exam Vital Signs: Last Vital Signs Temp 97.6 F 10/28/20 08:00 Pulse 81 10/28/20 08:36 Resp 18 10/28/20 08:00 BP 104/59 L 10/28/20 08:36 Pulse Ox 97 10/28/20 08:00 Body Mass Index 25.3 Const General: cooperative, comfortable, no acute distress, alert and awake Nutritional Appearance: average body habitus Orientation/consciousness: patient oriented x3 Neck Neck: Yes trachea midline and Yes no JVD Resp Effort & Inspection: normal respiratory effort Auscultation: crackles bilateral at the base Cardio Palpation: abnormal PMI displaced PMI Rate: regular rate Rhythm: regular rhythm Heart sounds: S1 normal heart sound present and S2 normal heart sound present GI Auscultation: normal bowel sounds Skin General skin exam: no rashes or lesions noted Neuro General: patient oriented x3 Extrem General: Yes no clubbing, cyanosis or edema Psych Appearance: grossly normal Results Labs and Meds Result diagrams: 10/28/20 06:12 10/28/20 06:12 Lab results: Laboratory Results - last 24 hr 10/28/20 10/28/20 10/28/20 06:12 06:12 06:12 WBC 9.8 RBC 4.09 L Hgb 11.9 L Hct 35.3 L MCV 86.3 MCH 29.1 MCHC 33.7 RDW 15.6 Plt Count 183 MPV 12.1 Absolute Nucleated RBC 0.000 Nucleated RBC % (auto) 0.0 Sodium 140 Potassium 3.5 Chloride 104 Carbon Dioxide 31 H Anion Gap 9 L BUN 22 H Creatinine 0.82 Estim Creat Clear Calc 71.7 Estimated GFR > 60 Fasting Glucose 96 Calcium 8.6 Magnesium 2.2 B-Natriuretic Peptide 2607 H Imaging Radiologist's impression: Impressions Chest X-Ray 10/27/20 10:20 IMPRESSION: Low lung volumes. Persistent bilateral pulmonary opacities are stable to slightly increased when compared to the 10/26/2020 comparison. Small bilateral effusions. Progress Note: A&P Assessment and plan (1) Acute congestive heart failure: Status: Acute Assessment and Plan: congestive heart failure with much improved symptoms. Still has some rales at the bases. Continue IV diuresis with Lasix. Strict intake and output chart needs to be pursued. However he is able to lay flat and can pursue cardiac catheterization to further evaluate for his congestive heart failure syndrome and cause of his cardiomyopathy. Will add low-dose carvedilol to his regimen. Blood pressure on the lower side. Will continuously closely monitor his blood pressure. Slowly up titrate his regimen as tolerated. (2) Cardiomyopathy: Status: Acute Assessment and Plan: Cardiomyopathy self-reported myocardial infarction in the 80s. No further ischemic evaluation at that time. Echocardiogram shows severe LV systolic dysfunction possibility of regional wall motion abnormality suggestive underlying significant coronary artery disease. Given his presentation high likely of ischemic cardiomyopathy. Recommend cardiac catheterization to further evaluate coronary anatomy. Risks, benefits, alternatives 2nd appeared to procedure was discussed. He is agreeable and understanding. Will set up [facility] transfer to [facility] today. Plan was also discussed with her daughter over the phone. She is agreeable as well. Continue to up titrate medications. Low-dose aspirin therapy is recommended. Statin therapy is recommended. Continue losartan and Coreg.. Will follow with the patient Fall Risk Details Current Medications: Current Medications Generic Name Dose Route Start Last Admin Trade Name Freq PRN Reason Stop Dose Admin Albuterol Sulfate 1 puff 10/26/20 14:44 Albuterol Sulfate 90 Mcg 8 Gm Inhaler INHALE QID PRN shortness of breath or wheezing Aspirin 81 mg 10/27/20 09:00 10/28/20 08:37 Aspirin Enteric Coated 81 Mg Tablet. PO 81 mg DAILY YOU Administration Atorvastatin Calcium 40 mg 10/27/20 09:00 10/28/20 08:37 Atorvastatin Calcium 40 Mg Tablet PO 40 mg DAILY YOU Administration Enoxaparin Sodium 40 mg 06/27/21 06:00 10/28/20 06:24 Enoxaparin Sodium 40 Mg/0.4 Ml Syringe SUBCUT 40 mg Q24H YOU Administration Furosemide 40 mg 10/28/20 09:00 10/28/20 08:36 Furosemide 40 Mg/4 Ml Vial IVPUSH 40 mg DAILY YOU Administration Protocol Losartan Potassium 25 mg 10/26/20 13:00 10/28/20 08:36 Losartan Potassium 25 Mg Tablet PO 25 mg DAILY YOU Administration Protocol Melatonin 9 mg 10/26/20 21:00 10/27/20 21:43 Melatonin 3 Mg Tablet PO 9 mg BEDTIME YOU Administration Prednisone 40 mg 10/27/20 09:00 10/28/20 08:36 Prednisone 20 Mg Tablet PO 40 mg DAILY YOU Administration Sodium Chloride 3 ml 10/26/20 16:00 10/28/20 08:36 0.9 % Sodium Chloride Flush 3 Ml Syringe IVFLUSH 3 ml QSHIFT YOU Administration Time Spent With Patient Time: Total time spent is greater than 50% in coordination of care (as documented) at patient's floor/unit and/or counseling patient: Time with patient: 25 - 35 minutes Progress Note: Quality Stroke Does the patient have a stroke diagnosis?: No Procedures Date of Service Date of Service: 10/28/20
--- NOTE | 2020-10-28 10:22 | P.DS_ITS ---
DS: Providers Provider Date of Service: 10/28/20 Date of admission: 10/26/20 11:40 Primary care physician: Celio Burroughs MD Consults: 10/26/20 09:48 Consult to Cardiology Routine Consulting Provider: Reyna Dove Reason for consultation: CHF 10/26/20 14:44 Consult to Pulmonology Routine Consulting Provider: Amadeo Hills Reason for consultation: sob, interstitial opacities 10/27/20 13:02 Consult to Cardiology Routine Consulting Provider: Clive Reeves Reason for consultation: chf DS: Diagnosis Discharge Diagnosis (1) Acute congestive heart failure: Status: Acute (2) Cardiomyopathy: Status: Acute DS: Medications Discharge Medications Home Medications: Home Medications Medication Instructions Recorded Confirmed atorvastatin 40 mg tablet 40 mg PO DAILY 03/14/20 10/26/20 aspirin 81 mg tablet,delayed 81 mg PO DAILY 05/10/20 10/26/20 release Previous Rx's Medication Instructions Recorded albuterol sulfate 90 mcg/actuation 1 inh INHALATION QID PRN 30 Days 10/22/20 aerosol inhaler #8.5 g melatonin 10 mg capsule 10 mg PO DAILY 30 Days #30 cap 10/22/20 carvedilol 3.125 mg PO BID #0 tab 10/28/20 furosemide 40 mg IVPUSH DAILY #0 ml 10/28/20 losartan 25 mg PO DAILY #0 tab 10/28/20 DS: Summary Hospital Course Hospital Course: Patient was admitted for acute on chronic congestive heart failure with reduced ejection fraction. He received IV Lasix and his shortness of breath significantly improved. He underwent echocardiogram, official report is still pending, but preliminarily showed severe LV systolic dysfunction with regional wall motion abnormality suggestive of underlying CAD. He was started on carvedilol and losartan, his other blood pressure medications were discontinued. Plan is for transfer to [facility] for cardiac catheterization. Time Spent with Patient Time attestation: Total time spent providing and/or coordinating discharge services: Discharge coordination time: Greater than 30 minutes Quality: Stroke Does the patient have a stroke diagnosis?: No Physical Exam Vital Signs: Vital Signs: Last Vital Signs Temp 97.6 F 10/28/20 08:00 Pulse 81 10/28/20 08:36 Resp 18 10/28/20 08:00 BP 104/59 L 10/28/20 08:36 Pulse Ox 97 10/28/20 08:00 Body Mass Index 25.3 General: AO X 3, no acute distress Resp: mostly clear, some basilar crackles CVS: S1,S2,RRR GI: soft, non tender, non distended Neuro: motor grossly intact Psych: appropriate affect DS: Data Data Completed and Pending Labs on day of discharge: Laboratory Results - last 24 hr 10/28/20 10/28/20 10/28/20 06:12 06:12 06:12 WBC 9.8 RBC 4.09 L Hgb 11.9 L Hct 35.3 L MCV 86.3 MCH 29.1 MCHC 33.7 RDW 15.6 Plt Count 183 MPV 12.1 Absolute Nucleated RBC 0.000 Nucleated RBC % (auto) 0.0 Sodium 140 Potassium 3.5 Chloride 104 Carbon Dioxide 31 H Anion Gap 9 L BUN 22 H Creatinine 0.82 Estim Creat Clear Calc 71.7 Estimated GFR > 60 Fasting Glucose 96 Calcium 8.6 Magnesium 2.2 B-Natriuretic Peptide 2607 H Preliminary micro results at discharge 10/26/20 10:37 Blood Culture - Preliminary Blood - Venous No growth after 24 hours. 10/26/20 10:37 Blood Culture - Preliminary Blood - Venous No growth after 24 hours. Discharge Plan Discharge Patient Disposition: Xfer Acute Care Hospital Discharge Diagnosis: chf Referrals: Po,Celio Bradley MD [Primary Care Provider] - 1 Week Discharge Medications: New furosemide 10 mg/mL Solution 40 mg IVPUSH DAILY Qty: 0 RF: 0 carvedilol 3.125 mg Tablet 3.125 mg PO BID Qty: 0 RF: 0 losartan 25 mg Tablet 25 mg PO DAILY Qty: 0 RF: 0 Continued aspirin [Adult Aspirin Regimen] 81 mg tablet,delayed release (DR/EC) 81 mg PO DAILY RF: 0 atorvastatin 40 mg tablet 40 mg PO DAILY RF: 0 albuterol sulfate 90 mcg/actuation HFA aerosol inhaler 1 inh inhalation QID PRN (Reason: shortness of breath or wheezing) 30 Days Qty: 8.5 RF: 0 melatonin 10 mg capsule 10 mg PO DAILY 30 Days Qty: 30 RF: 1 Discontinued terazosin 2 mg capsule 2 mg PO BEDTIME Qty: 30 RF: 5 furosemide [Lasix] 20 mg tablet 20 mg PO QAM 14 Days Qty: 14 RF: 0 lisinopril 5 mg tablet 5 mg PO DAILY 30 Days Qty: 30 RF: 1 atenolol-chlorthalidone 50-25 mg tablet 1 tab PO DAILY RF: 0 Discharge Orders: Discharge Order (Routine); Ordered 10/28/20 Ordered By: Johnathon Salinas Diet: advance to usual diet Activity on Discharge: As tolerated Stand Alone Forms: Patient Portal Discharge page Care Plan Goals: ischemic work up Health Concerns: chf, cad Plan of Treatment: trasnfer to [facility] for cath Assessment: see above
[2020-10-28 10:53] VITALS: BP 100/54; PULSE 86; RESP 14; TEMP 36.2; O2SAT 94
[2020-10-28 10:57] VITALS: BP 100/54; PULSE 86
[2020-10-28] MEDS: carvediloL 3.125 MG TABLET PO (10:57)
== END 2020-10-28 12:24 | disposition short-term general hospital (02) | DRG 291 ==
LOC: HO.ED 11:06 → HO.EDOVER 11:57 → HO.IMC 14:42
PROVIDERS: Nurse Practitioner Family; Admitting Provider Internal Medicine; Emergency Provider Emergency Medicine; PCP Internal Medicine; Visit Provider Internal Medicine
DX: I11.0 Hypertensive heart disease with heart failure (principal); J96.01 Acute respiratory failure with hypoxia; I25.10 Atherosclerotic heart disease of native coronary artery without angina pectoris; I50.23 Acute on chronic systolic (congestive) heart failure; I25.5 Ischemic cardiomyopathy; N40.0 Benign prostatic hyperplasia without lower urinary tract symptoms; Z20.822 Contact with and (suspected) exposure to COVID-19; Z87.891 Personal history of nicotine dependence; Z79.82 Long term (current) use of aspirin; Z79.899 Other long term (current) drug therapy
CPT/HCPCS: 0241U; 36415; 71045; 71046; 71250; 80048; 80076; 83605; 83735; 83880; 84484; 85025; 85027; 85610; 85652; 86140; 87040; 87635; 93005; 93306; 99285; J0456; J0696; J1650; J1940

== ENCOUNTER 2020-10-29 | Outpatient (REF) | payer MEDICARE, SELFPAY | END 2020-10-29 00:01 | disposition home or self-care (01) | LOC: CF | PROVIDERS: Visit Provider Internal Medicine | DX: I50.9 Heart failure, unspecified (principal); I25.10 Atherosclerotic heart disease of native coronary artery without angina pectoris; R94.31 Abnormal electrocardiogram [ECG] [EKG]; J84.9 Interstitial pulmonary disease, unspecified; I10 Essential (primary) hypertension; E78.00 Pure hypercholesterolemia, unspecified; N40.1 Benign prostatic hyperplasia with lower urinary tract symptoms; R32 Unspecified urinary incontinence; F41.8 Other specified anxiety disorders; Z87.891 Personal history of nicotine dependence; Z79.899 Other long term (current) drug therapy | CPT/HCPCS: 93005; 99202 ==